=== PATIENT | female | born 1960 | race Caucasian/White ===

== ENCOUNTER 2019-05-05 19:45 | Emergency (ER) | payer OTHER ==
[~2019-05-05] VITALS: Ht 165.1 cm; Wt 113.4 kg
[~2019-05-05 19:45] MED LIST: Diethylpropion25 MG PO
[2019-05-05] MEDS ORDERED: KETO10 PO (21:31)
[2019-05-05] MEDS ORDERED: CRUTCH4 XX (21:31)
== END 2019-05-05 22:01 | disposition home or self-care (01) ==
LOC: ER 19:45
DX: S80.02XA Contusion of left knee, initial encounter (principal); Z88.2 Allergy status to sulfonamides; Z87.891 Personal history of nicotine dependence; W01.0XXA Fall on same level from slipping, tripping and stumbling without subsequent striking against object, initial encounter
CPT/HCPCS: 73562-LT; 99283-25

== ENCOUNTER → 2021-11-09 | Outpatient (CLI) | payer BC ==
[~2021-11-09] MED LIST changes: +CRUTCH4 XX; +KETO10 PO
== END | disposition home or self-care (01) ==
LOC: LAB 10:26 → LAB SHORT 10:26
DX: J02.9 Acute pharyngitis, unspecified (principal); T14.8XXA Other injury of unspecified body region, initial encounter
CPT/HCPCS: 87070; 87075; 87077; 87081; 87147; 87186; 87205